=== PATIENT | female | born 1975 | race Caucasian/White ===

== ENCOUNTER 2021-03-26 21:11 | Inpatient (IN) | payer SELFPAY ==
[2021-03-26 21:30] VITALS: BP 176/117; PULSE 87; RESP 17; TEMP 36.8; O2SAT 98; BMI 21.9
--- NOTE | 2021-03-26 21:58 | W.ED.PSYCH ---
HPI - Psych General: Chief Complaint: Psychiatric Symptoms Stated Complaint: 96 Time Seen by Provider: 03/26/21 21:55 Source: patient, family and RN notes reviewed Limitations: no limitations History of Present Illness: HPI Narrative: This patient presents to the emergency department with complaint of delusions and paranoid. Patient has a 96-hour hold placed on her by court. Family members request the patient have psychological evaluation intermittent paranoia of people out to get her and her children. Patient is concerned and paranoid that to unnamed women are trying to harm her and also the neighbor concerned that he is a sex offender. Patient speech is very pressured and rapid. Patient states she has a history of anxiety and PTSD. Patient is presents with [facility] deputy with paperwork for 96-hour hold. Onset (ago): day(s) (5) Associated symptoms: Reports delusions; Deny depression Review of Systems General: Reports: 10 or more systems reviewed and unremarkable except in HPI and below Const: Denies: fever(s), chills, body aches or fatigue Eyes: Denies: change in vision or blurry vision ENMT: Denies: throat pain, hoarseness or mouth pain Card: Denies: chest pain, palpitations, irregular heart rhythm, edema, swelling of feet/ankles or lightheadedness Resp: Denies: dyspnea, productive cough, non-productive cough, wheezing or pain on inspiration GI: Denies: abdominal pain, nausea or vomiting : Denies: flank pain, difficulty voiding, dysuria, urinary frequency, urinary urgency or urinary hesitancy Musc: Denies: neck pain, back pain, extremity pain, extremity swelling, joint pain, joint swelling, joint redness, joint warmth or limited range of motion Skin/Breast: Denies: rash, pruritus, erythema or skin tenderness Neuro: Denies: headache(s), numbness in extremities or weakness in extremities Psych: Reports: anxiety and other; Denies: depression Physical Exam Const: COMMON NORMALS: no acute distress, average body habitus, patient oriented x3, no limitations, healthy appearing, alert and well nourished HENMT: COMMON NORMALS: normocephalic, atraumatic, hearing grossly normal bilaterally, external ears normal, EAC's normal, TM's normal bilaterally, Normal external nose present, Normal nasal mucous membranes and turbinates present, moist oral mucous membranes, oropharynx normal, dentition normal and gingiva normal HEAD & SCALP: normocephalic and atraumatic NOSE: Normal external nose present and Normal nasal mucous membranes and turbinates present EXTERNAL EAR: Yes external ears normal EXTERNAL AUDITORY CANAL: EAC's normal TYMPANIC MEMBRANE: TM's normal bilaterally Neck/C-Spine: COMMON NORMALS: full ROM, no lymphadenopathy, supple, no meningeal signs, no JVD, Thyroid normal and No carotid bruits THYROID: Thyroid normal Chest: COMMONS NORMALS: normal inspection of the chest, normal palpation of entire chest wall, normal inspection of the breasts and normal palpation of the breasts Breast/axilla inspection: Yes normal inspection of the breasts BREAST/AXILLA PALPATION: Yes normal palpation of the breasts Resp: COMMON NORMALS: normal respiratory effort, No retractions, No use of accessory muscles, clear to auscultation bilaterally and percussion normal AUSCULTATION: clear to auscultation bilaterally PERCUSSION: percussion normal Cardio: COMMON NORMALS: no JVD, regular rate, regular rhythm, S1 normal heart sound present, S2 normal heart sound present, No gallops present (Cardio), No clicks present (Cardio), No murmurs present (Cardio), No rub (Cardio) and Peripheral pulses 2+ throughout RATE: regular rate RHYTHM: regular rhythm HEART SOUNDS: S1 normal heart sound present and S2 normal heart sound present PERIPHERAL PULSES: Peripheral pulses 2+ throughout GI: COMMON NORMALS: Normal to inspection, nondistended, normoactive bowel sounds present, Soft to palpation, non-tender, No hepatosplenomegaly present, no masses and no bruits PALPATION: Yes Soft to palpation and Yes No hepatosplenomegaly present : COMMON NORMALS: Yes no CVA tenderness, Yes normal external appearance, Yes normal appearance of the vagina, Yes normal appearance of the cervix, Yes normal bimanual exam, Yes No adnexal tenderness and Yes no masses BLADDER/KIDNEY EXAM: Yes no CVA tenderness BIMANUAL EXAM - VAGINA & UTERUS: Yes normal bimanual exam Back/Pelvis: COMMON NORMALS: no CVA tenderness, thoracic and lumbar spine normal to inspection, no thoracic nor lumbar tenderness, thoraco-lumbar ROM normal and straight leg raise negative bilaterally Extremity: COMMON NORMALS: normal to inspection, full ROM, capillary refill normal, no joint enlargement, no clubbing, cyanosis or edema, no calf tenderness and no pedal edema Neuro: COMMON NORMALS: patient oriented x3 SENSORIUM/ORIENTATION: Yes alert MENINGEAL SIGNS: Yes no meningeal signs Psych: ATTITUDE: Yes paranoid SPEECH: Yes rapid and Yes Pressured speech present MOOD & AFFECT: Yes anxious THOUGHT CONTENT: Yes delusions Course Reevaluation(s): Reevaluation #1: Patient admitted for 96-hour hold due to psychological issues with paranoid and delusions. Time: 22:10 Consultations: Consultation #1: I did discuss at length with Dr. Moon is accepted this patient for admission to the psychological unit Time: 22:10 Vital Signs: Vital signs: Vital Signs Temperature 98.3 F 03/26/21 21:30 Pulse Rate 87 03/26/21 21:30 Respiratory Rate 17 03/26/21 21:30 Blood Pressure 176/117 03/26/21 21:30 Pulse Oximetry 98 03/26/21 21:30 MDM - Psych MDM Narrative: Medical decision making narrative: Patient presents to the emergency department with a 96-hour hold. Dr. Moon is admitted this patient Lab Data: Attestation: I reviewed the patient's lab results. Discharge Plan Discharge Patient Disposition: Admitted As Inpatient Clinical Impression: Acute anxiety, Acute paranoia, Delusional disorder Condition: Stable Referrals: Yong Bro MD [Primary Care Provider] - Coding Level of Care Code ED Stitch Bonding Machine Drawer In for Chg Fwd Exam Comprehensive
[2021-03-26 23:45] VITALS: BP 128/88; PULSE 68; RESP 16; TEMP 37; O2SAT 97
[2021-03-27 00:04] LABS: Basophils # 0.1 10^3/uL (0.0-0.1); Basophils % 0.7 %; Eosinophils # 0.2 10^3/uL (0.0-0.8); Eosinophils % 1.8 %; Hematocrit 36.4 % (37.0-47.0); Hemoglobin 12.2 g/dL (11.5-15.3); Lymphocytes # 2.8 10^3/uL (0.8-4.8); Lymphocytes % 27.9 %; Mean Corpuscular HGB Conc 33.5 g/dL (30.0-36.0); Mean Corpuscular Hemoglobin 30.3 pg (28.0-34.0); Mean Corpuscular Volume 90.5 fL (81-99); Mean Platelet Volume 9.9 fL (7.4-10.4); Monocytes % 9.9 %; Neutrophils # 5.84 10^3/uL (1.8-7.7); Neutrophils % 59.4 %; Nucleated Red Blood Cells % 0 %; Platelet Count 400 10^3/cmm (130-400); Red Blood Count 4.02 10^6/uL (4.1-5.3); Red Cell Distribution Width 11.9 % (12.1-15.1); White Blood Count 9.8 10^3/uL (4.0-10.0)
[2021-03-27 00:06] LABS: HCG Qualitative Urine. Negative (Negative)
[2021-03-27 00:22] LABS: Alanine Aminotransferase 11 U/L (0-33); Albumin Level 3.9 g/dL (3.5-5.2); Alkaline Phosphatase 71 IU/L (35-105); Anion Gap 12.5 (5-19); Aspartate Amino Transferase 16 U/L (0-32); Blood Urea Nitrogen 8 mg/dL (6-20); Carbon Dioxide 24 mmol/L (22-29); Chloride 105 mmol/L (98-107); Globulin 2.6 g/dL (1.3-4.6); Glomerular Filtration Rate 171.8 mL/min (90-130); Glucose 101 mg/dL (65-115); Osmolality Calculated 284 mOsm/kg (285-295); Potassium 3.5 mmol/L (3.5-5.1); Salicylate 0.6 mg/dL (3-10); Sodium 138 mmol/L (136-145); Total Bilirubin 0.3 mg/dL (0.15-1.2); Total Protein 6.5 g/dL (6.6-8.7)
[2021-03-27 00:25] LABS: Acetaminophen < 5.0 ug/mL (10-30); Alcohol Level < 10 mg/dL (0-10)
[2021-03-27 01:55] VITALS: BP 124/69; PULSE 68; RESP 16; TEMP 36.2; O2SAT 97
[2021-03-27 02:38] LABS: Add Urine Microscopic? YES; Bilirubin Urine Neg (Negative); Blood Urine 3+ (Negative); Glucose Urine UA Norm (Normal); Ketones Urine Negative (Negative); Leukocyte Esterase Urine Negative (Negative); Nitrate Urine Negative (Negative); Protein Urine Neg (Negative); Urine Appearance Clear (CLEAR); Urine Color Yellow (Yellow); Urobilinogen Urine Norm (Negative); pH Urine 5 (5-7)
[2021-03-27 02:39] LABS: Add Urine Culture? No; Mucus Urine 1+ /hpf; RBC Urine 15-25 /hpf (0-2); Squamous Epithelial Cell Urine 0-4 /hpf (0-5)
[2021-03-27 02:44] LABS: Amphetamines Screen Urine Positive (Negative); Barbiturates Screen Urine Negative (Negative); Benzodiazepines Screen Urine Negative (Negative); Cocaine Screen Urine Negative (Negative); Opiate Screen Urine Negative (Negative); PCP Screen Urine Negative (Negative); THC Screen Urine Negative (Negative)
[2021-03-27 02:55] VITALS: BP 179/104; PULSE 104; RESP 20; TEMP 36.7; O2SAT 96
[2021-03-27] MEDS: acetaminophen 325 mg Tablet 650 MG PO (03:07)
[2021-03-27 06:00] VITALS: BP 154/84; PULSE 104; RESP 16; TEMP 37; O2SAT 94
[2021-03-27 14:00] VITALS: BP 153/93; PULSE 84; RESP 16; TEMP 37.1; O2SAT 94
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
[2021-03-27 22:00] VITALS: BP 161/90; PULSE 87; RESP 17; TEMP 37.1; O2SAT 96
[2021-03-28 06:00] VITALS: BP 166/106; PULSE 106; RESP 20; TEMP 37.1; O2SAT 95
[2021-03-28 14:00] VITALS: BP 165/106; PULSE 91; RESP 15; TEMP 36.8; O2SAT 97
--- NOTE | 2021-03-28 19:12 | P.PN_ITS ---
Subjective NPU Subjective: Interval history: Sindhu presented today noting that she is feeling much better and appearing to have clear improvement over yesterday. She reports that she has a clear mind now and is identifying her role and how things went and what led to the 96-hour hold. She reports that she has a plan to call her parents apologize and is starting to identify specific treatment driven addition she can add to her life to avoid having this relapse be a significant problem versus a learning tool to get better in her recovery. Mental Status Exam MSE Comments: This is a slender, white female, in hospital scrubs, with adequate grooming and eye contact. No abnormal movements. Cooperative with exam in no acute distress. Speech was more normal rate and volume. Mood described as I am thinking more clearly; affect congruent. Thought process, organized. Thought content: patient denied any suicidal or homicidal ideation, there were no delusions reported or noted, she denied any auditory or visual hallucinations. Attention, concentration, and memory appear intact but none were formally tested. She is alert and oriented times three. Insight and judgment appear improving. Impulse control is limited, but improving. Vitals/I&O/Wt Last Vital Signs Temp 98.8 F 03/28/21 20:20 Pulse 78 03/28/21 20:20 Resp 18 03/28/21 20:20 BP 184/108 03/28/21 20:20 Pulse Ox 98 03/28/21 20:20 Data NPU : 03/26/21 23:53 03/26/21 23:53 A&P Additional A&P Information (1) Acute anxiety: (2) Acute paranoia: (3) Methamphetamine abuse: Additional A&P Information This is a 45-year-old white female with a long history of mental health and addiction issues who presents to the unit with recent relapse on a 96-hour hold and fairly resistant to the need for any treatment. 1. Continue current medication. 2. Continue every 15 minute checks for safety. 3. Encourage individual, group and milieu therapies. 4. Encourage sober living treatment after discharge at the highest level of care to which he is willing to commit. Involuntary Hold Information 96 Hour Hold: 96 Hour Involuntary Admission: Yes 96 Hour Hold Ending Date: 03/30/21 96 Hour Hold Ending Time: 22:28 Attestations NPU Medical Necessity Statement*: Inpatient hospitalization is medically necessary and the clinically appropriate intervention at this time. We will monitor medications and make changes as indicated. Likely length of stay 1 to 3 days. Coding Level of Care Code Acute Primary Care Nurse Practitioner for Henrietta See
[2021-03-28 20:20] VITALS: BP 184/108; PULSE 78; RESP 18; TEMP 37.1; O2SAT 98
[2021-03-28] MEDS: acetaminophen 325 mg Tablet 650 MG PO (21:11)
[2021-03-29 06:00] VITALS: BP 168/114; PULSE 104; RESP 15; TEMP 36.4; O2SAT 98
[2021-03-29] MEDS: acetaminophen 325 mg Tablet 650 MG PO (07:44)
--- NOTE | 2021-03-29 14:06 | PM.NDC ---
Diagnoses at Discharge Discharge Diagnosis (1) Acute anxiety: Status: Acute (2) Acute paranoia: Status: Acute (3) Methamphetamine abuse: Status: Acute Reason for Visit Reason for Visit: 96 Hospital Course Hospital Course Patient presented with acute anxiety and paranoia in the context of methamphetamine intoxication. 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 Patient states that she had been clean for 8 months and had a relapse. Patient denies any current psychiatric symptoms, denies any anxiety symptoms, denies any depressed symptoms and denies any suicidal ideation or thoughts about self-harm. Patient is future oriented and states that she is interested in seeking post discharge substance counseling and treatment which she reports that she had not attended for quite a while because she felt like things were controlled. Patient participated in unit milieu with no reports of any behavioral disturbances and did not require any ongoing psychotropic medication management. Patient was not suicidal or psychotic at the time of discharge and did not appear to pose an imminent threat of harm to self or others. Low to moderate risk of harm to self or others given no current suicidal ideation and no current psychotic symptoms although patient's risk may be elevated if she continues to abuse any substances or is noncompliant with post discharge substance counseling/treatment. Risk mitigation included psychiatric hospitalization to observe for any persistence of psychotic symptoms or self harming behavior, symptomatic treatment as well as coordination for post discharge substance counseling/treatment and recommendation to abstain from use of substances and alcohol post discharge. Patient communicated her understanding of the need to abstain from use of substances and alcohol as well as the need for compliance with post discharge substance counseling/treatment in order to further mitigate her risk of harm to self and others. Involuntary Hold Information 96 Hour Hold: 96 Hour Involuntary Admission: Yes 96 Hour Hold Ending Date: 03/30/21 96 Hour Hold Ending Time: 22:28 Mental Status Exam MSE Comments: Appears stated age, appropriately groomed and dressed wearing hospital scrubs, calm, cooperative, interactive, polite, good eye contact Psychomotor activity is neither increased nor decreased, no agitation Speech is normal rate and volume, spontaneous, clear reticulation, not pressured I feel much better, full range of affect, smiles appropriate times, not labile Alert and oriented to person, place, time, situation Memory and concentration appear to be intact per interview Intellectual functioning appears to be average based on vocabulary, interview Thought process, linear, no flight of ideas, no looseness of associations Thought content, no delusions, no hallucinations, no suicidal or homicidal ideation Insight and judgment appear to be intact Discharge Data Vitals: Last Vital Signs Temp 97.6 F 03/29/21 06:00 Pulse 104 H 03/29/21 06:00 Resp 15 03/29/21 06:00 BP 168/114 03/29/21 06:00 Pulse Ox 98 03/29/21 06:00 Discharge Plan Discharge Patient Disposition: Home Condition: Stable Prescriptions: No Action No Known Home Medications RF: 0 Discharge Orders: Discharge Order (Routine); Ordered 03/29/21 Ordered By: Chuy Mosquera Referrals: [facility] ([facility]) [Other] (Open M-F 7AM- 5:50AM Please walk in or call to make an appointment to be set up with services) Yong Bro MD [Primary Care Provider] - Discharge Diet: Regular Discharge Activity: Resume usual activity Patient Instructions: Opioid Safety Discharge Attestations NPU Time Spent in Discharge Care*: greater than 30 min Status at Discharge: Cognitive status at discharge: cognitively intact, Behavioral status at discharge: cooperative, Functional status at discharge: independent ambulation Overall status at discharge: patient is back to baseline Coding Level of Care Code Acute Chg FW DC note Diagnoses Acute anxiety F41.9 Acute paranoia F22 Methamphetamine abuse F15.10
[2021-03-29 14:09] VITALS: BP 168/114; PULSE 104; RESP 15; TEMP 36.4; O2SAT 98
== END 2021-03-29 14:26 | disposition home or self-care (01) | DRG 897 ==
LOC: ER 22:11 → NP 22:57
PROVIDERS: Admitting Provider Psychiatry & Neurology Psychiatry; Emergency Provider Emergency Medicine; PCP Family Medicine; Visit Provider Psychiatry & Neurology Psychiatry
DX: F15.129 Other stimulant abuse with intoxication, unspecified (principal); F43.10 Post-traumatic stress disorder, unspecified; F41.9 Anxiety disorder, unspecified; F17.210 Nicotine dependence, cigarettes, uncomplicated
CPT/HCPCS: 80053; 80306; 80307; 81001; 81025; 85025; 99285